=== PATIENT | female | born 1955 | race Caucasian/White ===

== ENCOUNTER → 2018-07-14 22:45 | Outpatient (CLI) | payer OTHER ==
[~2018-07-14 22:45] MED LIST: BAYER CHEWABLE81 MG PO; FISH OIL 1,0001 CA1 PO; PRAVACHOL20 MG PO; PROBIOTIC1 EAC1 PO
== END | disposition home or self-care (01) ==
LOC: D.MAMMO 08:30
DX: N64.4 Mastodynia (principal)

== ENCOUNTER → 2018-07-18 12:24 | Outpatient (CLI) | payer OTHER | END | disposition home or self-care (01) | LOC: D.CT 12:24 | DX: R91.1 Solitary pulmonary nodule (principal) ==

== ENCOUNTER 2020-08-02 18:30 | Outpatient (CLI) | payer MEDICARE | END 2020-08-02 23:59 | disposition home or self-care (01) | LOC: D.MAMMO 18:30 | PROVIDERS: ATTEND Clinical Nurse Specialist Adult Health | DX: Z12.31 Encounter for screening mammogram for malignant neoplasm of breast (principal) ==

== ENCOUNTER → 2020-08-10 09:53 | Outpatient (CLI) | payer MEDICARE ==
--- NOTE | 2020-08-12 12:15 | EC ---
PATIENT:MEGAN JEAN DATE OF SERVICE: 08/10/20 SEX: F MEDICAL RECORD: [id number] DATE OF : 55 LOCATION:[facility] AGE OF PATIENT: 65 ADMISSION DATE: 08/10/20 REFERRING PHYSICIAN: INTERPRETING PHYSICIAN: CONNIE RO MD ECHOCARDIOGRAM REPORT ECHO CHARGES 4 ECHO COMPLETE Date: 08/10/20 CLINICAL DIAGNOSIS: HEART MURMUR ECHOCARDIOGRAPHIC MEASUREMENTS (adult normal given) AC root (d.<3.7cm) 2.9 cm LV Septum d (<1.2 cm> 1.3 cm Valve Excursion 1.4 cm LV Septum (systole) 1.5 cm Left Atria (s.<4.0cm> 3.4 cm LVPW d(<1.2cm) 1.1 cm RV (d.<2.3cm) 3.0 cm LVPW (sytole) 1.3 cm LV diastole(<5.6CM) 4.8 cm MV E-F(>70mm/sec) cm LV systole 3.3 cm LVOT Diameter 1.5 cm MV exc.(>10mm) 1.3 cm Est.ejection fraction (50-75%) % DOPPLER: LVIT cm/sec A 104.0cm/sec E 112.0 cm/sec LA cm/sec RVSP 21 mmHg LVOT 139 cm/sec AOP1/2T m/s Asc. 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 Desai TAPE# PACS Pericardial Effusion N DATE OF SERVICE: Adequate 2D, color-flow imaging, spectral Doppler, and M-Mode Mild LVH. LV internal dimension is normal. Wall motion is normal. EF is greater than or equal to 55%. Aortic valve is tricuspid. No evidence of stenosis by Doppler interrogation. Left atrium normal at 3.4 cm. Mitral valve shows no prolapse. Trace MR. Right-sided chambers are grossly normal. Mild TR. 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
== END | disposition home or self-care (01) ==
LOC: D.HCCECHO 09:53
PROVIDERS: ATTEND Internal Medicine Interventional Cardiology
DX: R01.1 Cardiac murmur, unspecified (principal); I65.29 Occlusion and stenosis of unspecified carotid artery